=== PATIENT | female | born 1985 | race Caucasian/White ===

== ENCOUNTER 2017-05-14 10:23 | Emergency (ER) | payer OTHER ==
[2017-05-14 11:12] VITALS: BP 136/90
--- NOTE | 2017-05-14 12:33 | UC ---
isaiah Bell Timothy, scribed for Irma Phan DO on 05/14/17 at 1205 . Shoulder Pain HPI - HPI Summary HPI Summary: Kellie Andrade is a 31 yo female presenting to [facility] with 4/10 R shoulder dull ache S/P a volleyball game 6 days ago. She states that the pain travels down through the top of her arm, and when she moves it is worse and more focused on the top front of the shoulder. She denies any other Sx including eye discharge, CP, SOB, urinary symptoms, fever, chills, N/V/D. Her MHx includes appendectomy, cysts on liver. - History of Current Complaint Chief Complaint: UCUpperExtremity Stated Complaint: SHOULDER INJURY Time Seen by Provider: 05/14/17 12:04 Hx Obtained From: Patient Hx Last Menstrual Period: 04/21/17 Onset/Duration: Gradual Onset, Lasting Days, Still Present Timing: Constant Severity Initially: Moderate Severity Currently: Moderate Pain Intensity: 4 Pain Scale Used: 0-10 Numeric Character: Dull, Aching Aggravating Factor(s): Movement Alleviating Factor(s): Rest Associated Signs And Symptoms: Negative: Swelling, Redness, Bruising, Fever, Weakness, Numbness/Tingling Related History: Dominant Hand Right - Allergies/Home Medications Allergies/Adverse Reactions: Allergies Allergy/AdvReac Type Severity Reaction Status Date / Time No Known Allergies Allergy Verified 05/14/17 11:12 PMH/Surg Hx/FS Hx/Imm Hx Previously Healthy: Yes GI/ History: Other Other GI/ History: liver cysts - Surgical History Surgical History: Yes Surgery Procedure, Year, and Place: Appendectomy 2008 ([place]). EAR TUBES A CHILD - Family History Known Family History: Positive: Cardiac Disease Negative: Hypertension, Diabetes - Social History Occupation: Employed Full-time - [employer] Alcohol Use: Occasionally Alcohol Amount: 2 PER WEEK Substance Use Type: None Smoking Status (MU): Never Smoked Tobacco Have You Smoked in the Last Year: No Review of Systems Constitutional: Negative Skin: Negative Eyes: Negative ENT: Negative Respiratory: Negative Cardiovascular: Negative Gastrointestinal: Negative Genitourinary: Negative Motor: Negative Neurovascular: Negative Musculoskeletal: Other: - R shoulder pain Neurological: Negative Psychological: Negative All Other Systems Reviewed And Are Negative: Yes Physical Exam Triage Information Reviewed: Yes Appearance: Well-Appearing, No Pain Distress, Well-Nourished Vital Signs: Initial Vital Signs Temp 98.3 F 05/14/17 11:10 Pulse 74 05/14/17 11:10 Resp 16 05/14/17 11:10 BP 136/90 05/14/17 11:10 Pulse Ox 100 05/14/17 11:10 Vital Signs Reviewed: Yes Eyes: Positive: Conjunctiva Clear. Negative: Discharge ENT Exam: Normal ENT: Positive: Hearing grossly normal. Negative: Muffled/hoarse voice Neck exam: Normal Neck: Positive: Supple Respiratory: Positive: Lungs clear, Normal breath sounds, No respiratory distress Cardiovascular: Positive: RRR, No Murmur Musculoskeletal: Positive: Strength Intact, No Edema, Other: - right shoulder strength, sensation WNL. ROM restricted LUE in adduction at 70 degrees. No bony tenderness in LUE. Tenderness to palpation elicited over the subscapularis insertion. Pain elicited on the special test only for the subscapularis, no other pain is elicited. Neurological: Positive: Alert, Muscle Tone Normal Psychological Exam: Normal Psychological: Positive: Age Appropriate Behavior Skin Exam: Normal Skin: Positive: Other - warm, dry, normal color. Negative: rashes Shoulder Course/Dx - Course Assessment/Plan: Kellie Andrade is a 31 yo female presenting to [facility] with 4/10 R shoulder pain S/P serving at a volleyball game 6 days ago. Pt medication list reviewed this visit. After clinical examination, she will be discharged home with rotator cuff injury with appropriate instructions and follow up. Pt states she is leaving for OR in 2 days and will follow up with her PCP after she returns. Answered questions posed by Pt to best of ability. - Differential Dx/Diagnosis Differential Diagnosis/HQI/PQRI: Arthritis, Bursitis, Rotator Cuff Injury, Sprain, Strain Provider Diagnoses: rotator cuff injury Discharge - Discharge Plan Condition: Stable Disposition: HOME Patient Education Materials: Rotator Cuff Injury (ED) Referrals: Sanjana Thompson MD [Primary Care Provider] - If Needed Additional Instructions: YOU WOULD LIKELY BENEFIT FROM OSTEOPATHIC TREATMENT. WE RECOMMEND THAT YOU FIND AN OSTEOPATHIC PHYSICIAN IN YOUR AREA WHO FOCUSES EXCLUSIVELY ON OSTEOPATHIC MANIPULATIVE MEDICINE WITH EXPERTISE IN MYOFACIAL, LYMPHATIC, VISCERAL AND INTEROSSEOUS WORK. ANOTHER OPTION WOULD BE TO SEE AN TREASURY MANAGEMENT SALES CONSULTANT WHO DOES [employer]. WE ARE PROVIDING YOU WITH A SLING FOR COMFORT. REMEMBER TO TAKE YOUR ARM OUT OF THE SLING SEVERAL TIMES A DAY TO MOVE THE ELBOW SO IT DOES NOT GET STIFF. Please follow up with your primary care physician regard your visit to urgent care today. Return to urgent care or the emergency department with any new or recurring symptoms. The documentation as recorded by the isaiah jenkins Timothy accurately reflects the service I personally performed and the decisions made by me, Irma Phan DO.
== END 2017-05-14 12:30 | disposition home or self-care (01) ==
LOC: UCEAST 10:23
DX: S46.001A Unspecified injury of muscle(s) and tendon(s) of the rotator cuff of right shoulder, initial encounter (principal); X50.0XXA Overexertion from strenuous movement or load, initial encounter; Y93.68 Activity, volleyball (beach) (court); Y92.9 Unspecified place or not applicable; Y99.9 Unspecified external cause status
CPT/HCPCS: 99212; G0463

== ENCOUNTER 2018-12-04 10:01 | Day surgery (SDC) | payer OTHER ==
[~2018-12-04 10:01] MED LIST: Buffered Lidocaine 1% SYRIN* 1 ML/SYRINGE INTRADERM ONE; Dexamethasone TAB* 4 MG PO ONE; Famotidine IV* 10 MG/ML 2 ML (20 mg) IV ONE; Lactated Ringers 1000 ML Bag* 1,000 ML IV SCH; Ondansetron TAB* 4 MG PO ONE
[2018-12-04] MEDS ORDERED: Famotidine IV* 10 MG/ML 2 ML (20 mg) ONE (10:56)
[2018-12-04] MEDS ORDERED: Ondansetron ODT TAB* 4 MG ONE (10:57)
[2018-12-04] MEDS ORDERED: Dexamethasone TAB* 4 MG ONE (10:57)
[2018-12-04] MEDS ORDERED: oxyCODONE/Acetamin 5/325 MG* TAB PO PRN (12:28)
[2018-12-04] MEDS ORDERED: HYDROcodone/ACETAMIN 5-325 MG* 1 TAB PO PRN (12:28)
[2018-12-04] MEDS ORDERED: DiMENhydriNATE IV* 50 MG/ML VIAL IV PUSH PRN (12:28)
[2018-12-04] MEDS ORDERED: fentaNYL* 50 MCG/ML 2 ML VIAL (100 MCG VIAL) IV PRN (12:28)
[2018-12-04] MEDS ORDERED: Naloxone* 0.4 MG/ML 1 ML VIAL IV PRN (12:28)
[2018-12-04] MEDS ORDERED: fentaNYL* 50 MCG/ML 2 ML VIAL (100 MCG VIAL) ONE (12:43)
[2018-12-04] MEDS ORDERED: Propofol* 10 MG/ML 20 ML BTL ONE (12:43)
[2018-12-04] MEDS ORDERED: Lidocaine 2% PF * 5 ML VIAL ONE (12:43)
[2018-12-04] MEDS ORDERED: Midazolam* 1 MG/ML 5 ML VIAL (5 MG) ONE (12:43)
[2018-12-04] MEDS ORDERED: Succinylcholine* 20 MG/ML 10 ML VIAL ONE (12:43)
[2018-12-04] MEDS ORDERED: EPINEPHRINE 1 MG/ML 1 ML VIAL ONE (12:58)
[2018-12-04] MEDS ORDERED: Methylene Blue 0.5 %* 50 MG/10 ML AMP IV ONE (12:59)
[2018-12-04] MEDS ORDERED: Oxymetazoline 0.05% NASAL SPR* 15 ML BTL ONE (13:17)
[2018-12-04] MEDS ORDERED: Lidocaine 4% TOPICAL* 50 ML TOP.SOLN ONE (13:17)
[2018-12-04] MEDS ORDERED: Ondansetron INJ* 2 MG/ML VIAL ONE (13:29)
[2018-12-04 14:34] VITALS: BP 114/77
--- NOTE | 2018-12-04 20:16 | OP ---
DATE OF OPERATION: 12/04/18 - SDS DATE OF : 89 SURGEON: Doug Cha MD PRE-OP DIAGNOSIS: Left vocal cord cyst. 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 OPERATIVE PROCEDURE: Microlaryngoscopy with excision of a left vocal cord cyst under general endotracheal anesthesia. I did use the KTP laser. COMPLICATIONS: None. DISPOSITION: Good. SPECIMENS: None. BLOOD LOSS: None. DESCRIPTION OF PROCEDURE: The patient was taken to the operating room and placed in the supine position on the operating table. General anesthesia was induced and she was orotracheally intubated with a laser-safe tube. Wet towels were used around the face and her oxygen was at 25% during the surgery. Tooth guard was placed on the upper teeth. The laryngoscope was inserted, suspended from the Lewy arm suspension system and the microscope was brought in. She had what appeared to be a multilobulated cyst to the left mid-membranous vocal cord. Cottonoid impregnated with oxymetazoline and 4% lidocaine was placed. Sickle knife was used to make a cut on the lateral aspect of this and a Sweetheart grasper was used to open it up and a little dull tab knife was used to dissect these little pieces out and then grasped with a microcup and removed. I used the KTP laser at a very low power setting equivalent of 0.7 toussaint in a superpulsed mode to just hit the base a couple of times to try to figure out these are not recurrent because it had before. Laryngoscope and tooth guard were released and removed. The patient tolerated this procedure well, no complications, and transferred to the recovery room in stable condition. [id number]/[facility] #: [id number] [facility]
== END 2018-12-04 15:05 | disposition home or self-care (01) ==
LOC: OR 10:01
PROVIDERS: ATTEND Otolaryngology
DX: J38.3 Other diseases of vocal cords (principal); K21.9 Gastro-esophageal reflux disease without esophagitis
CPT/HCPCS: 81025; A9270-GY; J0330; J2250; J2405; J2704; J3010; J8540